=== PATIENT | male | born 1965 | race Caucasian/White ===

== ENCOUNTER → 2020-04-29 12:38 | Outpatient (CLI) | payer OTHER, SELFPAY ==
--- NOTE | 2020-04-29 12:39 | DI.RAD.S_ITS ---
PROCEDURE: XR ANKLE LT MIN 3V INDICATIONS: lateral ankle swelling/pain TECHNIQUE: 3 views of the ankle were acquired. COMPARISON: None. FINDINGS: Bones: There is a mildly to moderately displaced fracture of the distal fibula, which is seen at and below the level of the syndesmosis. The syndesmosis is widened and the ankle mortise is mildly widened. No definite, additional fracture can be seen. The talar dome demonstrates no darby abnormality. Soft tissues: Soft tissue swelling is seen. IMPRESSION: Distal fibular fracture, with syndesmosis widening and ankle mortise widening. No definite, additional fractures are seen. If it would be helpful for clinical management decision making, please consider a dedicated ankle CT for further evaluation. Dictated by: Hansel Reyes M.D. on 04/29/2020 at 11:54 Approved by: Hansel Reyes M.D. on 04/29/2020 at 11:55
== END ==
PROVIDERS: Referring Provider Physician Assistant; Visit Provider Physician Assistant
DX: S82.832A Other fracture of upper and lower end of left fibula, initial encounter for closed fracture (principal); M25.572 Pain in left ankle and joints of left foot; X58.XXXA Exposure to other specified factors, initial encounter
CPT/HCPCS: 73610

== ENCOUNTER 2022-11-26 09:04 | Emergency (ER) | payer OTHER, SELFPAY ==
[2022-11-26] VITALS (16 sets, daily range): BP systolic 130–182; BP diastolic 79–100; PULSE 108–150; RESP 18–26; TEMP 36.6–37; O2SAT 96–100; BMI 22.1
--- NOTE | 2022-11-26 09:25 | DI.RAD.S_ITS ---
PROCEDURE: XR CHEST 1V INDICATIONS: chest pain TECHNIQUE: One view of the chest was acquired. COMPARISON: None. FINDINGS: Surgical changes and devices: None. Lungs and pleura: Lungs are clear. No pleural effusions or pneumothorax. Mediastinum: Mediastinal contours appear normal. Heart size is normal. Bones and chest wall: No suspicious bony lesions. Overlying soft tissues appear unremarkable. IMPRESSION: No acute cardiopulmonary process demonstrated radiographically. Dictated by: Leandro Chaudhry M.D. on 11/26/2022 at 9:34 Approved by: Leandro Chaudhry M.D. on 11/26/2022 at 9:38
--- NOTE | 2022-11-26 09:41 | DI.CT.S_ITS ---
PROCEDURE: CT ANGIO CHEST PE PROTOCOL INDICATIONS: palpitations and shortness of breath TECHNIQUE: After the administration of intravenous contrast, 2 mm thick sections acquired from the pulmonary apices to the posterior costophrenic angles. 3-dimensional maximum intensity projection (MIP) coronal and sagittal reformats were then acquired through the thorax. For radiation dose reduction, the following was used: automated exposure control, adjustment of mA and/or kV according to patient size. COMPARISON: None. FINDINGS: Image quality: Excellent. Pulmonary arteries: Pulmonary arteries are normal in size, and demonstrate no intraluminal filling defects to suggest central pulmonary embolism. Lungs and pleura: Lungs are clear. 2 mm anterior pulmonary nodule, left upper lobe, image 139/5. No pleural effusions or pneumothorax. Central and peripheral airways are patent. Mediastinum: Heart size is normal, without pericardial effusion. No mediastinal or hilar adenopathy. Thoracic aorta is normal in caliber and enhancement. Esophagus is normal in caliber, without hiatal hernia. Bones and chest wall: No suspicious bony lesions. Ribs and thoracic spine appear intact throughout. Thyroid gland is unremarkable as visualized. No axillary or supraclavicular adenopathy. Abdomen: Moderate diffuse hepatic steatosis. IMPRESSION: 1. No evidence acute pulmonary emboli. 2. Incidental 2 mm left upper lobe pulmonary nodule. Please refer to the chart below for follow-up recommendations. 3. Moderate diffuse hepatic steatosis. Fleischner Society criteria for SOLID lung nodule followup. Nodule size (mm)Low-risk patientHigh-risk patient<6 (single or multiple)No routine followup.Optional CT at 12 months. 6-8 (single or multiple)CT at 6-12 months, then optional CT at 18-24 mo.CT at 6-12 months, then CT at 18-24 months. >8 (single)CT at 3 months, PET-CT, or biopsy. Same as for low-risk pts. >8 (multiple)CT at 3-6 months, then optional CT at 18-24 mo.CT at 3-6 months, then CT at 18-24 months. Fleischner Society criteria for SUB-SOLID lung nodule followup. Solitary pure ground-glass nodules<6 mm (ground glass or part solid)No followup needed. 6 mm or larger (ground glass)CT at 6-12 months to confirm persistence, then CT every 2 years until 5 years.6 mm or larger (part solid)CT at 3-6 months to confirm persistence, then annual CT until 5 years if unchanged and solid component remains <6 mm. Multiple sub-solid nodules<6 mmCT at 3-6 months, then CT consider at 2 & 4 years for high risk patients. [address] at 3-6 months. Subsequent management based on most suspicious lesions. Recommendations do not apply to lung cancer screening, patients with immunosuppression, or patients with known primary cancer. Dictated by: Nirav Shultz M.D. on 11/26/2022 at 10:24 Approved by: Nirav Shultz M.D. on 11/26/2022 at 10:29
--- NOTE | 2022-11-26 09:42 | ED.CHESTPAIN ---
HPI - Chest Pain General Chief Complaint: Chest Pain Stated Complaint: High BP, SOB,palpitaions,shaking,Cold Time Seen by Provider: 11/26/22 09:33 Source: patient Mode of arrival: Family Vehicle Limitations: no limitations History of Present Illness HPI narrative: Patient brought here by for complaints of shortness of breath. As well as palpitations. Feeling very lightheaded but not dizzy states feels very foggy he states. Patient has history high blood pressure and asthma. Patient states a month ago he tested positive for COVID as not felt well since then. Has felt tired and fatigued. Had appointment this morning with primary care for regular routine checkup. Blood pressure has been elevated for the past 2 years but has not been placed on any blood pressure medications because he is not seen his primary care. This morning at work he felt very foggy and off-balance and palpitations with dyspnea. Denies any black or bloody stools. Does not smoke cigarettes. Denies any chest pain. He states his heart rate usually is in the low 100s. That is not uncommon for him. No recent long travel or immobilization. Denies any cough cold congestion or fever. Related Data Home Medications Medication Instructions Recorded Confirmed Fluticasone Propionate (FLONASE) 1 spray intranasal QDAY ##0 10/18/12 11/27/22 ibuprofen 400 mg tablet 400 mg PO Q8HP ##0 10/18/12 11/27/22 Previous Rx's Medication Instructions Recorded albuterol sulfate 90 mcg/actuation 2 puff inhalation Q4-6H PRN Asthma 07/19/19 aerosol inhaler #8 grams fluticasone 113 mcg-salmeterol 14 1 puff inhalation ONCE Asthma 90 07/19/19 mcg/actuation breath activated days #1 ea powdr metoprolol succinate 25 mg 25 mg PO DAILY #30 tabs 11/26/22 tablet,extended release 24 hr Allergies Allergy/AdvReac Type Severity Reaction Status Date / Time PENICILLIN Allergy Mild Uncoded 11/27/22 10:58 Review of Systems Review of Systems Narrative: GENERAL: negative chills, fatigue, malaise, fever, sweats. HEENT: negative sinus pain, ear pain, sore throat RESPIRATORY: Positive dyspnea, negative cough CARDIOVASCULAR: negative chest pain, positive palpitations GASTROINTESTINAL: negative nausea, vomiting, abdominal pain : negative dysuria, frequency, hematuria MUSCULOSKELETAL: negative muscle or bony pain SKIN: negative rash, skin lesions NEUROLOGIC: negative weakness, numbness, positive lightheadedness ROS Unobtainable: All systems reviewed & are unremarkable except as noted in HPI and below Patient History Medical History (Updated 11/27/22 @ 11:41 by Nazario Hoffmann DO) Fracture of distal end of fibula Hepatic steatosis Tachycardia Transaminitis Social History Smoking Status: Never smoker Smoking Status: Never smoker alcohol intake frequency: 0-2 drinks per day Substance Use Type: does not use Exam Narrative Exam Narrative: GENERAL: in no distress, not toxic not dyspneic HEAD: Normocephalic. EYES: Pupils equal round ENT: Mucous membranes moist. NECK: Trachea midline. CARDIOVASCULAR: Tachycardia with Regular rate and rhythm without murmurs RESPIRATORY: Clear to auscultation. Breath sounds equal bilaterally. No wheezes, rales, or rhonchi. GASTROINTESTINAL: Abdomen soft, non-tender EXTREMITIES: No gross deformities. BACK: No flank tenderness. NEURO: AOx4. SKIN: Warm and dry PSYCH: Not anxious, is cooperative Initial Vital Signs Initial Vital Signs: Vital Signs Pulse Rate 145 H 11/26/22 09:15 Respiratory Rate 26 H 11/26/22 09:15 Pulse Oximetry 100 11/26/22 09:15 Course Orders Ordered: Discontinued Medications Aspirin (Aspirin 81 Mg Chew Tab) 324 mg PO NOW ONE Stop: 11/26/22 09:26 Last Admin: 11/26/22 09:57 Dose: Not Given Documented By: RLS Sodium Chloride (Normal Saline 0.9%) 500 mls @ 1,000 mls/hr IV BOLUS ONE Stop: 11/26/22 10:10 Last Infusion: 11/26/22 11:53 Dose: 0 mls/hr Documented By: Admin: 11/26/22 09:57 Dose: 1,000 mls/hr Documented By: RLS Metoprolol Succinate (Metoprolol Er 25 Mg Tablet) 25 mg PO NOW ONE Stop: 11/26/22 14:28 Last Admin: 11/26/22 14:45 Dose: 25 mg Documented By: CTS Vital Signs Vital signs: Vital Signs - 8 hr 11/26/22 09:26 11/26/22 09:15 11/26/22 09:30 Temperature 97.9 F Pulse Rate 150 H 145 H Respiratory Rate 26 H 26 H Blood Pressure 182/98 H 166/80 H Pulse Oximetry 100 100 Oxygen Delivery Method Room Air 11/26/22 09:30 11/26/22 09:55 11/26/22 09:55 Temperature Pulse Rate 125 H 129 H Respiratory Rate 19 20 Blood Pressure 162/100 H Pulse Oximetry 99 99 Oxygen Delivery Method 11/26/22 10:00 11/26/22 10:00 11/26/22 10:30 Temperature Pulse Rate 119 H Respiratory Rate 23 Blood Pressure 162/84 H 146/84 H Pulse Oximetry 97 Oxygen Delivery Method 11/26/22 10:30 11/26/22 11:00 11/26/22 11:00 Temperature Pulse Rate 115 H 111 H Respiratory Rate 19 18 Blood Pressure 138/79 Pulse Oximetry 96 96 Oxygen Delivery Method 11/26/22 11:30 11/26/22 11:30 11/26/22 12:00 Temperature Pulse Rate 112 H Respiratory Rate 18 Blood Pressure 146/82 H 130/80 Pulse Oximetry 97 Oxygen Delivery Method 11/26/22 12:00 11/26/22 12:30 11/26/22 12:30 Temperature Pulse Rate 111 H 113 H Respiratory Rate 20 19 Blood Pressure 140/81 Pulse Oximetry 96 96 Oxygen Delivery Method 11/26/22 13:00 11/26/22 13:00 11/26/22 13:13 Temperature 98.6 F Pulse Rate 115 H Respiratory Rate 19 Blood Pressure 150/82 H Pulse Oximetry 97 Oxygen Delivery Method 11/26/22 13:12 11/26/22 13:12 11/26/22 13:30 Temperature Pulse Rate 118 H Respiratory Rate 21 Blood Pressure 155/84 H 145/80 H Pulse Oximetry 98 Oxygen Delivery Method 11/26/22 13:30 Temperature Pulse Rate 112 H Respiratory Rate 18 Blood Pressure Pulse Oximetry 96 Oxygen Delivery Method Room Air MDM - Chest Pain Lab Data 11/26/22 09:16 11/26/22 09:16 Labs: Lab Results 11/26/22 11/26/22 11/26/22 Range/Units 09:16 09:16 09:16 WBC 6.2 (4.5-11.0) X10^3/uL RBC 4.45 L (4.5-5.9) X10^6/uL Hgb 14.9 (13.5-17.5) g/dL Hct 43.5 (41-53) % MCV 97.6 (80-100) fL MCH 33.4 (26-34) PG MCHC 34.3 (30-36) % RDW 13.0 (11.6-14.8) % Plt Count 170 (150-400) X10^3/uL Neut % (Auto) 69.7 (50-75) % Lymph % (Auto) 20.2 L (25-40) % Maries % (Auto) 9.2 (3-14) % Eos % (Auto) 0.3 L (2-4) % Baso % (Auto) 0.6 (0-2) % Neut # (Auto) 4300 (3880-8025) /uL Lymph # (Auto) 1300 (6567-6750) /uL Maries # (Auto) 600 (0-900) /uL Eos # (Auto) 0 (0-450) /uL Baso # (Auto) 0 (0-100) /uL PT 10.2 (10.1-12.7) SECONDS INR 0.9 (0.9-1.3) APTT 27 (26-36) SECONDS Sodium 139 (137-145) mmol/L Potassium 3.9 (3.4-5.1) mmol/L Chloride 98 (98-107) mmol/L Carbon Dioxide 26 (22-32) mmol/L BUN 15 (9-20) mg/dL Creatinine 0.74 (0.66-1.25) mg/dL Estimated GFR > 60 (>60) mL/min BUN/Creatinine Ratio 20.3 (6-22) Glucose 116 H (70-100) mg/dL Calcium 9.6 (8.4-10.2) mg/dL Magnesium 1.9 (1.6-2.3) mg/dL Total Bilirubin 2.3 H (0.2-1.3) mg/dL AST 130 H (17-59) IU/L ALT 107 H (<50) IU/L Alkaline Phosphatase 90 (38-126) U/L Total Creatine Kinase 116 (55-170) U/L CK-MB (CK-2) 1.26 (<2.37) ng/mL CK-MB (CK-2) Rel Index 1.1 L (1.5-5.0) % Troponin I < 0.012 (0.01-0.034) ng/mL Total Protein 8.3 H (6.3-8.2) g/dL Albumin 4.9 (3.5-5.0) g/dL Globulin 3.4 (1.7-4.1) g/dL Albumin/Globulin Ratio 1.4 (1.0-2.8) Lipase 271 (23-300) U/L TSH (0.47-4.68) uIU/mL Urine Color Urine Appearance Urine pH (4.5-8.0) Ur Specific [place] (1.000-1.035) Urine Protein (Negative) Urine Glucose (UA) (Negative) g/dL Urine Ketones (NEGATIVE) Urine Occult Blood (Negative) Urine Nitrate (Negative) Urine Bilirubin (NEGATIVE) Urine Urobilinogen (0.2) E.U./dL Ur Leukocyte Esterase (NEGATIVE) Urine RBC (0-5/HPF) Urine WBC (0-5/HPF) Ur Squamous Epith Cells (0-5/HPF) Urine Bacteria (None) Ur Culture Indicated? U Opiates 300ng/mL cut (Negative) Ur Oxycodone Screen (Negative) Urine Methadone Screen (Negative) Ur Barbiturates Screen (Negative) U Tricyclic Antidepress (Negative) Ur Phencyclidine Scrn (Negative) Ur Amphetamines Screen (Negative) U Methamphetamines Scrn (Negative) Ur MDMA Scrn (Ecstasy) (Negative) U Benzodiazepines Scrn (Negative) Urine Cocaine Screen (Negative) U Marijuana (THC) Screen (Negative) Ethyl Alcohol ( - 10) mg/dL SARS-CoV-2 (PCR) (Negative) 11/26/22 11/26/22 11/26/22 Range/Units 09:16 09:16 11:22 WBC (4.5-11.0) X10^3/uL RBC (4.5-5.9) X10^6/uL Hgb (13.5-17.5) g/dL Hct (41-53) % MCV (80-100) fL MCH (26-34) PG MCHC (30-36) % RDW (11.6-14.8) % Plt Count (150-400) X10^3/uL Neut % (Auto) (50-75) % Lymph % (Auto) (25-40) % Maries % (Auto) (3-14) % Eos % (Auto) (2-4) % Baso % (Auto) (0-2) % Neut # (Auto) (5467-8251) /uL Lymph # (Auto) (2101-2821) /uL Maries # (Auto) (0-900) /uL Eos # (Auto) (0-450) /uL Baso # (Auto) (0-100) /uL PT (10.1-12.7) SECONDS INR (0.9-1.3) APTT (26-36) SECONDS Sodium (137-145) mmol/L Potassium (3.4-5.1) mmol/L Chloride (98-107) mmol/L Carbon Dioxide (22-32) mmol/L BUN (9-20) mg/dL Creatinine (0.66-1.25) mg/dL Estimated GFR (>60) mL/min BUN/Creatinine Ratio (6-22) Glucose (70-100) mg/dL Calcium (8.4-10.2) mg/dL Magnesium (1.6-2.3) mg/dL Total Bilirubin (0.2-1.3) mg/dL AST (17-59) IU/L ALT (<50) IU/L Alkaline Phosphatase (38-126) U/L Total Creatine Kinase 92 (55-170) U/L CK-MB (CK-2) TNP (<2.37) ng/mL CK-MB (CK-2) Rel Index TNP (1.5-5.0) % Troponin I < 0.012 (0.01-0.034) ng/mL Total Protein (6.3-8.2) g/dL Albumin (3.5-5.0) g/dL Globulin (1.7-4.1) g/dL Albumin/Globulin Ratio (1.0-2.8) Lipase (23-300) U/L TSH 0.796 (0.47-4.68) uIU/mL Urine Color Urine Appearance Urine pH (4.5-8.0) Ur Specific [place] (1.000-1.035) Urine Protein (Negative) Urine Glucose (UA) (Negative) g/dL Urine Ketones (NEGATIVE) Urine Occult Blood (Negative) Urine Nitrate (Negative) Urine Bilirubin (NEGATIVE) Urine Urobilinogen (0.2) E.U./dL Ur Leukocyte Esterase (NEGATIVE) Urine RBC (0-5/HPF) Urine WBC (0-5/HPF) Ur Squamous Epith Cells (0-5/HPF) Urine Bacteria (None) Ur Culture Indicated? U Opiates 300ng/mL cut (Negative) Ur Oxycodone Screen (Negative) Urine Methadone Screen (Negative) Ur Barbiturates Screen (Negative) U Tricyclic Antidepress (Negative) Ur Phencyclidine Scrn (Negative) Ur Amphetamines Screen (Negative) U Methamphetamines Scrn (Negative) Ur MDMA Scrn (Ecstasy) (Negative) U Benzodiazepines Scrn (Negative) Urine Cocaine Screen (Negative) U Marijuana (THC) Screen (Negative) Ethyl Alcohol ( - 10) mg/dL SARS-CoV-2 (PCR) Negative (Negative) 11/26/22 11/26/22 11/26/22 Range/Units 13:10 13:10 19:16 WBC (4.5-11.0) X10^3/uL RBC (4.5-5.9) X10^6/uL Hgb (13.5-17.5) g/dL Hct (41-53) % MCV (80-100) fL MCH (26-34) PG MCHC (30-36) % RDW (11.6-14.8) % Plt Count (150-400) X10^3/uL Neut % (Auto) (50-75) % Lymph % (Auto) (25-40) % Maries % (Auto) (3-14) % Eos % (Auto) (2-4) % Baso % (Auto) (0-2) % Neut # (Auto) (2675-4341) /uL Lymph # (Auto) (8140-8449) /uL Maries # (Auto) (0-900) /uL Eos # (Auto) (0-450) /uL Baso # (Auto) (0-100) /uL PT (10.1-12.7) SECONDS INR (0.9-1.3) APTT (26-36) SECONDS Sodium (137-145) mmol/L Potassium (3.4-5.1) mmol/L Chloride (98-107) mmol/L Carbon Dioxide (22-32) mmol/L BUN (9-20) mg/dL Creatinine (0.66-1.25) mg/dL Estimated GFR (>60) mL/min BUN/Creatinine Ratio (6-22) Glucose (70-100) mg/dL Calcium (8.4-10.2) mg/dL Magnesium (1.6-2.3) mg/dL Total Bilirubin (0.2-1.3) mg/dL AST (17-59) IU/L ALT (<50) IU/L Alkaline Phosphatase (38-126) U/L Total Creatine Kinase (55-170) U/L CK-MB (CK-2) (<2.37) ng/mL CK-MB (CK-2) Rel Index (1.5-5.0) % Troponin I (0.01-0.034) ng/mL Total Protein (6.3-8.2) g/dL Albumin (3.5-5.0) g/dL Globulin (1.7-4.1) g/dL Albumin/Globulin Ratio (1.0-2.8) Lipase (23-300) U/L TSH (0.47-4.68) uIU/mL Urine Color Yellow Urine Appearance Clear Urine pH 6.5 (4.5-8.0) Ur Specific [place] 1.010 (1.000-1.035) Urine Protein Negative (Negative) Urine Glucose (UA) Negative (Negative) g/dL Urine Ketones 3+ H (NEGATIVE) Urine Occult Blood Negative (Negative) Urine Nitrate Negative (Negative) Urine Bilirubin Negative (NEGATIVE) Urine Urobilinogen 1.0 (0.2) E.U./dL Ur Leukocyte Esterase Negative (NEGATIVE) Urine RBC None seen (0-5/HPF) Urine WBC 0-1/hpf (0-5/HPF) Ur Squamous Epith Cells 0-1 /hpf (0-5/HPF) Urine Bacteria None seen (None) Ur Culture Indicated? Cult not indicated U Opiates 300ng/mL cut Negative (Negative) Ur Oxycodone Screen Negative (Negative) Urine Methadone Screen Negative (Negative) Ur Barbiturates Screen Negative (Negative) U Tricyclic Antidepress Negative (Negative) Ur Phencyclidine Scrn Negative (Negative) Ur Amphetamines Screen Negative (Negative) U Methamphetamines Scrn Negative (Negative) Ur MDMA Scrn (Ecstasy) Negative (Negative) U Benzodiazepines Scrn Negative (Negative) Urine Cocaine Screen Negative (Negative) U Marijuana (THC) Screen Negative (Negative) Ethyl Alcohol < 10 ( - 10) mg/dL SARS-CoV-2 (PCR) (Negative) Imaging Data Chest x-ray: Radiologist's Impression: [address] [address] XRay Report Signed Patient: Rick Teixeira MR#: [id number] : 1965 Acct:[id number] Age/Sex: 57 / M Date of Service: 11/26/22 Loc: ED Accession Number: [id number] ?? Procedure: XR chest 1V Ordering Provider: Calos Almanza MD PROCEDURE:? XR CHEST 1V ? INDICATIONS:? chest pain ? TECHNIQUE:? One view of the chest was acquired.? ? COMPARISON:? None. ? FINDINGS:? ? Surgical changes and devices:? None.? ? Lungs and pleura:? Lungs are clear.? No pleural effusions or pneumothorax.? ? Mediastinum:? Mediastinal contours appear normal.? Heart size is normal.? ? Bones and chest wall:? No suspicious bony lesions.? Overlying soft tissues appear unremarkable.? ? IMPRESSION:? No acute cardiopulmonary process demonstrated radiographically. ? ? Dictated by: Leandro Chaudhry M.D. on 11/26/2022 at 9:34 ? ? Approved by: Leandro Chaudhry M.D. on 11/26/2022 at 9:38 ? CT scan - chest: Radiologist's Impression: [address] [address] [address] Scan Report Signed Patient: Rick Teixeira MR#: [id number] : 1965 Acct:[id number] Age/Sex: 57 / M Date of Service: 11/26/22 Loc: ED Accession Number: [id number] ?? Procedure: CT angio chest PE protocol Ordering Provider: Calos Almanza MD PROCEDURE:? CT ANGIO CHEST PE PROTOCOL ? INDICATIONS:? palpitations and shortness of breath ? TECHNIQUE:? After the administration of intravenous contrast, 2 mm thick sections acquired from the pulmonary apices to the posterior costophrenic angles.? 3-dimensional maximum intensity projection (MIP) coronal and sagittal reformats were then acquired through the thorax.? For radiation dose reduction, the following was used:? automated exposure control, adjustment of mA and/or kV according to patient size.? ? COMPARISON:? None. ? FINDINGS:? Image quality:? Excellent.? ? Pulmonary arteries:? Pulmonary arteries are normal in size, and demonstrate no intraluminal filling defects to suggest central pulmonary embolism.? ? Lungs and pleura:? Lungs are clear.? 2 mm anterior pulmonary nodule, left upper lobe, image 139/5.? No pleural effusions or pneumothorax.? Central and peripheral airways are patent.? ? Mediastinum:? Heart size is normal, without pericardial effusion.? No mediastinal or hilar adenopathy.? Thoracic aorta is normal in caliber and enhancement.? Esophagus is normal in caliber, without hiatal hernia.? ? Bones and chest wall:? No suspicious bony lesions.? Ribs and thoracic spine appear intact throughout.? Thyroid gland is unremarkable as visualized.? No axillary or supraclavicular adenopathy.? ? Abdomen:? Moderate diffuse hepatic steatosis. ? IMPRESSION:? ? 1. No evidence acute pulmonary emboli. ? 2. Incidental 2 mm left upper lobe pulmonary nodule.? Please refer to the chart below for follow-up recommendations. ? 3. Moderate diffuse hepatic steatosis. ? Fleischner Society criteria for SOLID lung nodule followup.? Nodule size (mm)Low-risk patientHigh-risk patient<6 (single or multiple)No routine followup.Optional CT at 12 months. 6-8 (single or multiple)CT at 6-12 months, then optional CT at 18-24 mo.CT at 6-12 months, then CT at 18-24 months.? >8 (single)CT at 3 months, PET-CT, or biopsy. Same as for low-risk pts.? >8 (multiple)CT at 3-6 months, then optional CT at 18-24 mo.CT at 3-6 months, then CT at 18-24 months.? Fleischner Society criteria for SUB-SOLID lung nodule followup.? Solitary pure ground-glass nodules<6 mm (ground glass or part solid)No followup needed.? 6 mm or larger (ground glass)CT at 6-12 months to confirm persistence, then CT every 2 years until 5 years.6 mm or larger (part solid)CT at 3-6 months to confirm persistence, then annual CT until 5 years if unchanged and solid component remains <6 mm.? Multiple sub-solid nodules<6 mmCT at 3-6 months, then CT consider at 2 & 4 years for high risk patients. [address] at 3-6 months. Subsequent management based on most suspicious lesions. Recommendations do not apply to lung cancer screening, patients with immunosuppression, or patients with known primary cancer. ? ? ? Dictated by: Nirav Shultz M.D. on 11/26/2022 at 10:24 ? ? Approved by: Nirav Shultz M.D. on 11/26/2022 at 10:29 ? [facility] Narrative Medical decision making narrative: Patient brought here by for complaints of shortness of breath. As well as palpitations. Feeling very lightheaded but not dizzy states feels very foggy he states. Patient has history high blood pressure and asthma. Patient states a month ago he tested positive for COVID as not felt well since then. Has felt tired and fatigued. Had appointment this morning with primary care for regular routine checkup. Blood pressure has been elevated for the past 2 years but has not been placed on any blood pressure medications because he is not seen his primary care. This morning at work he felt very foggy and off-balance and palpitations with dyspnea. Denies any black or bloody stools. Does not smoke cigarettes. Denies any chest pain. He states his heart rate usually is in the low 100s. That is not uncommon for him. No recent long travel or immobilization. Denies any cough cold congestion or fever. After history and exam CBC CMP troponin EKG chest x-ray and CT chest PE protocol heart monitor IV normal saline ordered [facility] CC: Palpitations dyspnea lightheaded Complicating co-morbidities: None Data collected from Patient and Medical records reviewed: No previous visits here for this complaint Differential considered: Includes but not limited to pulmonary embolism/pneumothorax/pneumonia/arrhythmia/asthma/non-STEMI Exam documented above, pertinent findings include: Tachycardia Lab Test results independently reviewed as above. Pertinent findings: CBC white cell count 6.2 hemoglobin 14.9 hematocrit 43.5, AST 130 ALT 107 total bilirubin 2.3 alkaline phosphatase 90, negative alcohol negative drug screen, COVID negative, troponin less than 0.012 with repeat unchanged Independently reviewed EKG as above sinus tachycardia otherwise normal EKG rate [address] elevation or depression Imaging studies independently reviewed: CT angiogram PE chest no PE no acute process, moderate diffuse hepatic steatosis, chest x-ray no acute cardiopulmonary process Consultations: 2:[address] Batres, hospitalist, at this time he feels this is long-term COVID results/effects. No admission criteria at this time. 2:25 p.m.. Spoke with primary care dr hoffmann, he would like patient started on metoprolol succinate 25 mg a day. He will schedule outpatient echocardiogram and gallbladder ultrasound Treatments: Metoprolol succinate 25 mg/normal saline Re-evaluations: 2:15 p.m.. Spoke with patient and results. We are going to speak with hospitalist for possible admission versus discharge home with provided results. Heart rate has improved, low 1 100s/110 average, blood pressure now 145/80 2:30 p.m.. Spoke with patient and again. This time I have spoken with primary care Dr. Hoffmann,, he will see patient to reschedule appointment and need to start metoprolol 25 mg a day. Metoprolol succinate. He will schedule for ultrasound of the gallbladder as well as echocardiogram of the heart. Patient and agree with treatment plan. Patient does desire discharge home and not admission. Discussion: Appropriate for discharge home. I did speak with hospitalist and at this time no admission criteria and will need outpatient follow up echocardiogram and gallbladder ultrasound. I did speak with primary care as well and he desires patient to be on metoprolol succinate 25 mg daily and he will follow up with patient for echocardiogram and gallbladder ultrasound. Return precautions reviewed with patient. He desires discharge home as well as desires discharge home. Patient denies denies any abdominal pain. No CT imaging or radiographs of the abdomen/gallbladder liver at this time indicated Diagnosis: Hypertension/palpitations Discharge Plan Departure Patient Disposition: Home Clinical Impression: Heart palpitations, Acute dyspnea Hypertension Qualifiers: Hypertension type: unspecified Qualified Code(s): I10 - Essential (primary) hypertension Instructions: High Blood Pressure, DI for Shortness of Breath, DI for Palpitations Activity Restrictions/Additional Instructions: Please reschedule your appointment with Dr. Hoffmann, call today. Continue your new blood pressure medication tomorrow. It has been sent to your [facility] pharmacy. Be sure to pick that up today. You will need to schedule outpatient ultrasound of your heart as well as ultrasound of your gallbladder and liver. Do not consume alcohol products. Return if worse if any questions or concerns. Prescriptions: New metoprolol succinate 25 mg tablet extended release 24 hr 25 mg PO DAILY Qty: 30 0RF No Action fluticasone propion-salmeterol 113-14 mcg/actuation aerosol powdr breath activated 1 puff INHALATION ONCE 90 Days Qty: 1 1RF albuterol sulfate 90 mcg/actuation HFA aerosol inhaler 2 puff INHALATION Q4-6H PRN (Reason: Asthma) Qty: 8 0RF ibuprofen 400 MG tablet 400 mg PO Q8HP Qty: 0 Fluticasone Propionate (FLONASE) 1 spray Intranasal QDAY Qty: 0 Referrals: Miscellaneous,Doctor, MD [Primary Care Provider] - Stand Alone Forms: Patient Portal/API
[2022-11-26 09:47] LABS: COVID19 -Nasal RAPID Negative (Negative)
[2022-11-26 09:48] LABS: Add Manual Diff / Slide Review NO; Basophils Absolute Auto 0 /uL (0-100); Basophils Percent Auto 0.6 % (0-2); Eosinophils Absolute Auto 0 /uL (0-450); Eosinophils Percent Auto 0.3 % (2-4); Hematocrit 43.5 % (41-53); Hemoglobin 14.9 g/dL (13.5-17.5); Lymphocytes Absolute Auto 1300 /uL (1100-4500); Lymphocytes Percent Auto 20.2 % (25-40); Mean Corpuscular HGB Conc 34.3 % (30-36); Mean Corpuscular Hemoglobin 33.4 PG (26-34); Mean Corpuscular Volume 97.6 fL (80-100); Monocytes Absolute Auto 600 /uL (0-900); Monocytes Percent Auto 9.2 % (3-14); Neutrophils Absolute Auto 4300 /uL (1500-7000); Neutrophils Percent Auto 69.7 % (50-75); Platelet Count 170 X10^3/uL (150-400); Red Blood Cell Count 4.45 X10^6/uL (4.5-5.9); White Blood Cell Count 6.2 X10^3/uL (4.5-11.0)
[2022-11-26] MEDS: SODIUM CHLORIDE 0.9% 500 ML 1000 ML IV (09:57)
[2022-11-26 10:09] LABS: INR 0.9 (0.9-1.3); Prothrombin Time 10.2 SECONDS (10.1-12.7)
[2022-11-26 10:10] LABS: PTT Partial Thromboplastin Tim 27 SECONDS (26-36)
[2022-11-26 10:11] LABS: Alanine Aminotransferase 107 IU/L (<50); Albumin 4.9 g/dL (3.5-5.0); Albumin Globulin Ratio 1.4 (1.0-2.8); Alkaline Phosphatase 90 U/L (38-126); Aspartate Aminotransferase 130 IU/L (17-59); BUN Creatinine Ratio 20.3 (6-22); Bilirubin Total 2.3 mg/dL (0.2-1.3); Blood Urea Nitrogen 15 mg/dL (9-20); Calcium 9.6 mg/dL (8.4-10.2); Carbon Dioxide 26 mmol/L (22-32); Chloride 98 mmol/L (98-107); Creatine Kinase 116 U/L (55-170); Estimated Glomerular Filt Rate > 60 mL/min (>60); Globulin 3.4 g/dL (1.7-4.1); Glucose 116 mg/dL (70-100); HEMOLYSIS < 15 (0-50); Lipase 271 U/L (23-300); Magnesium 1.9 mg/dL (1.6-2.3); Potassium 3.9 mmol/L (3.4-5.1); Sodium 139 mmol/L (137-145); Total Protein 8.3 g/dL (6.3-8.2)
[2022-11-26 10:22] LABS: Troponin I < 0.012 ng/mL (0.01-0.034)
[2022-11-26 10:26] LABS: CKMB % Relative Index 1.1 % (1.5-5.0); Creatine Kinase MB 1.26 ng/mL (<2.37)
[2022-11-26 11:13] LABS: Thyroid Stimulating Hormone 0.796 uIU/mL (0.47-4.68)
[2022-11-26 12:18] LABS: Creatine Kinase 92 U/L (55-170)
[2022-11-26 12:28] LABS: Troponin I < 0.012 ng/mL (0.01-0.034)
[2022-11-26 13:28] LABS: Ethanol (ETOH) < 10 mg/dL
[2022-11-26 13:33] LABS: Appearance Urine UA CLEAR; Bilirubin Urine UA NEGATIVE (NEGATIVE); Color Urine UA YELLOW; Glucose Urine UA NEGATIVE (Negative); Ketones Urine UA 3+ (NEGATIVE); Leukocyte Esterase Urine UA NEGATIVE (NEGATIVE); Nitrite Urine UA NEGATIVE (Negative); Occult Blood Urine UA NEGATIVE (Negative); Protein Urine UA NEGATIVE (Negative); pH Urine UA 6.5 (4.5-8.0)
[2022-11-26 13:42] LABS: UR Morphine/Opiate cutoff 300 Negative (Negative); Ur Creatinine Normal (Normal); Ur Specific Gravity Normal (Normal); Urine Amphetamines Negative (Negative); Urine Barbiturates Negative (Negative); Urine Benzodiazepines Negative (Negative); Urine Cocaine Negative (Negative); Urine MDMA Negative (Negative); Urine Methadone Negative (Negative); Urine Methamphetamines Negative (Negative); Urine Oxycodone Negative (Negative); Urine Phencyclidine Negative (Negative); Urine Tetrahydrocannabinol Negative (Negative); Urine Tricyclic Antidepressant Negative (Negative); Urine pH Normal (Normal)
[2022-11-26 13:46] LABS: RBC Urine None Seen (0-5/HPF); Squamous Epithelial Cell Urine 0-1 /HPF (0-5/HPF); WBC Urine 0-1/HPF (0-5/HPF)
[2022-11-26 13:47] LABS: Bacteria Urine None Seen; Culture Indicated Urine Cult Not Indicated
[2022-11-26] MEDS: METOPROLOL ER 25 MG TABLET PO (14:45)
== END 2022-11-26 14:47 | disposition home or self-care (01) ==
PROVIDERS: Emergency Provider Emergency Medicine
DX: R00.2 Palpitations (principal); I10 Essential (primary) hypertension; R06.00 Dyspnea, unspecified; R07.9 Chest pain, unspecified; Z20.822 Contact with and (suspected) exposure to COVID-19
CPT/HCPCS: 36415; 71045; 71275; 80053; 80305; 80320; 81001; 82550; 82553; 83690; 83735; 84443; 84484; 85025; 85610; 85730; 87635; 93005; 93010; 99284; 99285; C9803; Q9967

== ENCOUNTER → 2022-12-22 15:01 | Outpatient (CLI) | payer OTHER, SELFPAY | PROVIDERS: PCP Family Medicine; Referring Provider Family Medicine; Visit Provider Family Medicine | DX: R00.2 Palpitations (principal) | CPT/HCPCS: 93242 ==

== ENCOUNTER → 2024-04-13 06:55 | Outpatient (CLI) | payer OTHER, SELFPAY ==
[2024-04-13 07:30] LABS: Add Manual Diff / Slide Review NO; Basophils Absolute Auto 0 /uL (0-100); Basophils Percent Auto 0.6 % (0-2); Eosinophils Absolute Auto 100 /uL (0-450); Eosinophils Percent Auto 1.3 % (2-4); Hematocrit 42.5 % (41-53); Hemoglobin 14.6 g/dL (13.5-17.5); Lymphocytes Absolute Auto 1200 /uL (1100-4500); Lymphocytes Percent Auto 25.3 % (25-40); Mean Corpuscular HGB Conc 34.4 % (30-36); Mean Corpuscular Hemoglobin 35.6 PG (26-34); Mean Corpuscular Volume 103.4 fL (80-100); Monocytes Absolute Auto 500 /uL (0-900); Monocytes Percent Auto 11.4 % (3-14); Neutrophils Absolute Auto 2900 /uL (1500-7000); Neutrophils Percent Auto 61.4 % (50-75); Platelet Count 188 X10^3/uL (150-400); Red Blood Cell Count 4.11 X10^6/uL (4.5-5.9); Red Cell Distribution Width 12.3 % (11.6-14.8); White Blood Cell Count 4.8 X10^3/uL (4.5-11.0)
[2024-04-13 07:48] LABS: Alanine Aminotransferase 71 IU/L (<50); Albumin 4.1 g/dL (3.5-5.0); Albumin Globulin Ratio 1.5 (1.0-2.8); Alkaline Phosphatase 100 U/L (38-126); Aspartate Aminotransferase 86 IU/L (17-59); BUN Creatinine Ratio 12.7 (6-22); Bilirubin Total 0.7 mg/dL (0.2-1.3); Blood Urea Nitrogen 9 mg/dL (9-20); Calcium 9.2 mg/dL (8.4-10.2); Carbon Dioxide 30 mmol/L (22-32); Chloride 106 mmol/L (98-107); Cholesterol 165 mg/dL (140-199); Estimated Glomerular Filt Rate > 60 mL/min (>60); Globulin 2.7 g/dL (1.7-4.1); Glucose 90 mg/dL (70-100); HDL Cholesterol 83 mg/dL (40-60); HEMOLYSIS 19 (0-50); LDL Cholesterol Calculated 62 mg/dL (<100); Potassium 4.7 mmol/L (3.4-5.1); Sodium 141 mmol/L (137-145); Total Protein 6.8 g/dL (6.3-8.2); Triglycerides 101 mg/dL (35-150)
[2024-04-13 08:17] LABS: Prostate Specific Antigen Scrn 2.37 ng/mL (0.1-4.0)
== END ==
PROVIDERS: PCP Family Medicine; Referring Provider Family Medicine; Visit Provider Family Medicine
DX: Z12.5 Encounter for screening for malignant neoplasm of prostate (principal); Z13.220 Encounter for screening for lipoid disorders; R74.01 Elevation of levels of liver transaminase levels
CPT/HCPCS: 36415; 80053; 80061; 85025; G0103

== ENCOUNTER → 2024-10-09 11:04 | Outpatient (CLI) | payer OTHER, SELFPAY ==
--- NOTE | 2024-10-09 11:05 | DI.RAD.S_ITS ---
PROCEDURE: XR CHEST 2V INDICATIONS: SOB and cough TECHNIQUE: 2 views of the chest were acquired. COMPARISON: [facility], CR, XR CHEST 1V, 11/26/2022, 9:24. FINDINGS: Surgical changes and devices: None. Lungs and pleura: Right lower lobe consolidation. No pleural effusion. Mediastinum: Heart size is normal and unchanged. Bones and chest wall: Unremarkable IMPRESSION: Right lower lobe presumed pneumonia. Consider future imaging surveillance to assess for resolution. Dictated by: Mike Retana M.D. on 10/09/2024 at 10:15 Approved by: Mike Retana M.D. on 10/09/2024 at 10:16
== END ==
PROVIDERS: PCP Family Medicine
DX: R05.9 Cough, unspecified (principal)
CPT/HCPCS: 71046

== ENCOUNTER → 2024-10-09 11:07 | Outpatient (CLI) | payer OTHER, SELFPAY ==
[2024-10-09 11:53] LABS: Influenza A - CEPHEID Flu A POSITIVE (NEGATIVE); Influenza B - CEPHEID Flu B NEGATIVE (NEGATIVE); Respiratory Syncytial Virus Negative (Negative)
[2024-10-09 11:54] LABS: COVID-19 CEPHEID 4-PLEX PCR Negative (Negative)
== END ==
PROVIDERS: PCP Family Medicine; Visit Provider Physician Assistant Medical
DX: R05.1 Acute cough (principal)
CPT/HCPCS: 0241U; 71046

== ENCOUNTER → 2024-12-28 07:21 | Outpatient (CLI) | payer OTHER, SELFPAY ==
[2024-12-28 07:47] LABS: Add Manual Diff / Slide Review NO; Basophils Absolute Auto 0 /uL (0-100); Basophils Percent Auto 0.7 % (0-2); Eosinophils Absolute Auto 100 /uL (0-450); Eosinophils Percent Auto 1.6 % (2-4); Hematocrit 44.6 % (41-53); Hemoglobin 15.2 g/dL (13.5-17.5); Lymphocytes Absolute Auto 1600 /uL (1100-4500); Lymphocytes Percent Auto 46.4 % (25-40); Mean Corpuscular Hemoglobin 34.3 PG (26-34); Mean Corpuscular Volume 100.7 fL (80-100); Monocytes Absolute Auto 400 /uL (0-900); Monocytes Percent Auto 10.4 % (3-14); Neutrophils Absolute Auto 1400 /uL (1500-7000); Neutrophils Percent Auto 40.9 % (50-75); Platelet Count 183 X10^3/uL (150-400); Red Blood Cell Count 4.42 X10^6/uL (4.5-5.9); Red Cell Distribution Width 13.1 % (11.6-14.8); White Blood Cell Count 3.4 X10^3/uL (4.5-11.0)
[2024-12-28 08:15] LABS: Alanine Aminotransferase 25 IU/L (<50); Albumin 4.6 g/dL (3.5-5.0); Albumin Globulin Ratio 1.7 (1.0-2.8); Alkaline Phosphatase 60 U/L (38-126); Aspartate Aminotransferase 40 IU/L (17-59); BUN Creatinine Ratio 9.9 (6-22); Blood Urea Nitrogen 8 mg/dL (9-20); Calcium 9.7 mg/dL (8.4-10.2); Carbon Dioxide 28 mmol/L (22-32); Chloride 102 mmol/L (98-107); Estimated Glomerular Filt Rate > 60 mL/min (>60); Globulin 2.7 g/dL (1.7-4.1); Glucose 84 mg/dL (70-100); HEMOLYSIS < 15 (0-50); Potassium 4.1 mmol/L (3.4-5.1); Sodium 139 mmol/L (137-145); Total Protein 7.3 g/dL (6.3-8.2)
== END ==
PROVIDERS: PCP Family Medicine; Referring Provider Family Medicine; Visit Provider Family Medicine
DX: D75.89 Other specified diseases of blood and blood-forming organs (principal); R74.01 Elevation of levels of liver transaminase levels; Z71.41 Alcohol abuse counseling and surveillance of alcoholic
CPT/HCPCS: 36415; 80053; 85025

== ENCOUNTER → 2025-09-19 14:50 | Outpatient (CLI) | payer OTHER, SELFPAY ==
[2025-09-19 20:23] LABS: Influenza A - CEPHEID Flu A NEGATIVE (NEGATIVE); Influenza B - CEPHEID Flu B NEGATIVE (NEGATIVE)
[2025-09-19 20:26] LABS: COVID-19 CEPHEID 4-PLEX PCR Negative (Negative)
== END ==
PROVIDERS: PCP Family Medicine; Referring Provider Physician Assistant; Visit Provider Physician Assistant
DX: R05.1 Acute cough (principal); J02.9 Acute pharyngitis, unspecified
CPT/HCPCS: 87070; 87637

== ENCOUNTER → 2025-09-19 15:19 | Outpatient (CLI) | payer OTHER, SELFPAY ==
--- NOTE | 2025-09-19 15:21 | DI.RAD.S_ITS ---
PROCEDURE: XR CHEST 2V INDICATIONS: cough x 8 days, hx asthma TECHNIQUE: 2 views of the chest were acquired. COMPARISON: [facility], CR, XR CHEST 2V, 10/09/2024, 11:02. FINDINGS: Surgical changes and devices: None. Lungs and pleura: Increased bronchovascular markings in bilateral hilar region are seen. No definite focal infiltrate. Mild bronchial wall thickening is likely present. No pleural effusions or pneumothorax. Mediastinum: Mediastinal contours are normal. Heart size is normal. Bones and chest wall: No suspicious bony abnormalities. Soft tissues appear unremarkable. IMPRESSION: Finding is concerning for reactive airway disease such as bronchitis or viral illness. No definite focal infiltrate. No pleural effusion or pneumothorax. Dictated by: Chevy Castro M.D. on 09/19/2025 at 15:46 Approved by: Chevy Castro M.D. on 09/19/2025 at 15:47
== END ==
PROVIDERS: PCP Family Medicine; Referring Provider Family Medicine; Visit Provider Physician Assistant
DX: J06.9 Acute upper respiratory infection, unspecified (principal); R05.1 Acute cough
CPT/HCPCS: 71046; 87070; 87637